=== PATIENT | male | born 1985 | race Caucasian/White ===

== ENCOUNTER 2018-09-30 08:40 | Emergency (ER) | payer BC ==
[~2018-09-30] VITALS: Ht 177.8 cm; Wt 122.3 kg
[~2018-09-30 08:40] MED LIST: ACETAMINOPHEN W1 TA6 PO; NO HOME MEDICATIONS
[2018-09-30 08:45] VITALS: TEMP 97.7
[2018-09-30] MEDS ORDERED: PERCOCET 325 MG1 TA2 PO (08:58)
[2018-09-30] MEDS ORDERED: SYNTHROID0.1 MG/TAB PO (08:59)
[2018-09-30] MEDS ORDERED: PRILOSEC 20MG20 MG PO (08:59)
[2018-09-30] MEDS ORDERED: TRICOR 48MG48 MG PO (08:59)
[2018-09-30] MEDS ORDERED: LIPITOR20 MG PO (08:59)
[2018-09-30 09:25] LABS: BASO % 0.5 % (0.0-2.0); EOS # 0.2 (0.0-0.7); EOS % 3.1 % (0-4.0); GRAN # 4.1 (1.4-6.5); HEMATOCRIT 42.9 % (42.0-52.0); HEMOGLOBIN 14.3 g/dl (13.5-18.0); LYMPH # 2.6 (1.2-3.4); LYMPH % 33.5 % (20.0-51.0); MEAN CELL VOLUME 90 fl (80.0-100.0); MEAN CORPUSCULAR HEMOGLOBIN 30 pg (27.0-31.0); MEAN CORPUSCULAR HGB CONC 33 g/dl (33.0-37.0); MONO # 0.7 (0.1-0.6); MONO % 8.5 % (1.7-9.3); PLATELET COUNT 233 K/mm3 (130-400); RED BLOOD COUNT 4.75 M/mm3 (4.20-5.60); REDCELL DISTRIBUTION WIDTH-CV 13.1 % (11.5-14.5)
[2018-09-30 09:49] LABS: ALANINE AMINOTRANSFERASE 71 U/L (21-72); ALBUMIN 4.1 gm/dL (3.5-5.0); ALKALINE PHOSPHATASE 46 U/L (50-136); ANION GAP 6 mmol/L (7-16); AST,SGOT 39 U/L (15-37); BILIRUBIN,TOTAL 0.5 mg/dL (0.0-1.0); BLOOD UREA NITROGEN 21 mg/dL (9-20); CALCIUM 9.1 mg/dL (8.4-10.2); CARBON DIOXIDE 28 mmol/L (22-30); CHLORIDE 104 mmol/L (98-107); CREATININE, serum 0.82 mg/dL (0.66-1.25); GLUCOSE 107 mg/dL (74-106); POTASSIUM 4.3 mmol/L (3.4-5.0); SODIUM 138 mmol/L (137-145); TOTAL PROTEIN 7.2 gm/dL (6.4-8.2)
[2018-09-30 09:53] LABS: C-REACTIVE PROTEIN < 0.5 mg/dL (0.0-0.9)
[2018-09-30 11:01] VITALS: BP 125/97; PULSE 71
== END 2018-09-30 11:09 | disposition home or self-care (01) ==
LOC: COL.ER 08:40
PROVIDERS: Emergency Medicine
DX: R51 Headache (principal); E03.9 Hypothyroidism, unspecified; Z88.5 Allergy status to narcotic agent; Z88.1 Allergy status to other antibiotic agents
CPT/HCPCS: J1885; J2405; J2550; J7030